=== PATIENT | female | born 1960 | race Two or more races ===

== ENCOUNTER 2022-04-14 19:50 | Emergency (ER) | payer BC, OTHER ==
[~2022-04-14] VITALS: Ht 165.1 cm; Wt 72.6 kg
--- NOTE | 2022-04-14 19:55 | NUR ---
[id number]. DIZZYNESS, NAUSEA AND VOMMITING. HX OF VERTIGO. MECLIZINE 25MG AND ZOFRAN 4MG SL 2 HRS CANDY MIXER. PARAMEDICS GAVE ZOFRAN 4MG IV. PLACED COMFORTABLY IN BED. VITALS CHECKED.
[2022-04-14] MEDS ORDERED: diphenhydrAMINE HCL 50 MG/ML VIAL ONE (20:21)
[2022-04-14] MEDS ORDERED: ONDANSETRON HCL/PF 4 MG/2 ML VIAL ONE (20:21)
[2022-04-14] MEDS ORDERED: DIAZEPAM 5 MG/ML 2 ML DISP.SYRIN ONE (20:21)
[2022-04-14] MEDS ORDERED: ONDANSETRON HCL/PF 4 MG/2 ML VIAL IVP ONE (20:30)
[2022-04-14] MEDS ORDERED: IV NS 0.9% 1,000 ML BAG IV ONE (20:30)
[2022-04-14] MEDS ORDERED: DIAZEPAM 5 MG/ML 2 ML DISP.SYRIN IV ONE (20:30)
[2022-04-14] MEDS ORDERED: diphenhydrAMINE HCL 50 MG/ML VIAL IV ONE (20:30)
--- NOTE | 2022-04-14 20:34 | NUR ---
BLOOD COLLECTED AND SENT TO LAB
--- NOTE | 2022-04-14 20:34 | NUR ---
PATIENT GOING TO CT.
[2022-04-14 20:57] LABS: BASOPHILS % (AUTO) 0.4 % (0.0-2.0); EOSINOPHILS % (AUTO) 1.8 % (0.0-6.0); HEMATOCRIT 48 % (33-45); HEMOGLOBIN 15.3 g/dL (11.5-14.8); LYMPHOCYTES # (AUTO) 0.9 K/uL (0.8-4.8); LYMPHOCYTES % (AUTO) 14.6 % (20.0-44.0); MEAN CORPUSCULAR HGB CONC 32 g/dl (31.0-36.0); MEAN CORPUSCULAR VOLUME 87 fL (82-100); MONOCYTES # (AUTO) 0.3 K/uL (0.1-1.30); MONOCYTES % (AUTO) 5.4 % (2.0-12.0); NEUTROPHILS # (AUTO) 4.7 K/uL (1.8-8.9); NEUTROPHILS % (AUTO) 77.8 % (43.0-81.0); PLATELET COUNT (AUTO) 304 K/uL (150-450); RED BLOOD CELL COUNT(AUTO) 5.54 MIL/uL (4.0-5.2); WHITE BLOOD COUNT (AUTO) 6.1 K/uL (4.3-11.0)
[2022-04-14 21:08] LABS: CALCIUM, SERUM 9.2 mg/dL (8.5-10.1); CREATININE 0.6 mg/dL (0.6-1.3)
[2022-04-14 21:19] LABS: BILIRUBIN,DIRECT 0.1 mg/dL (0.0-0.2); BILIRUBIN,TOTAL 0.5 mg/dL (0.2-1.0); TOTAL PROTEIN, SERUM 6.9 g/dL (6.4-8.2)
[2022-04-14] MEDS ORDERED: DIAZEPAM 5 MG TABLET PO ONE (21:30)
[2022-04-14] MEDS ORDERED: DIAZEPAM 5 MG TABLET ONE (21:45)
[2022-04-14] MEDS ORDERED: DIAZ5TAB4 PO (21:46)
--- NOTE | 2022-04-14 23:06 | NUR ---
Patient discharged to home in stable condition. Written and verbal after care instructions given. Patient verbalizes understanding of instruction.
--- NOTE | 2022-04-14 23:06 | NUR ---
IV CANNULA REMOVED
[2022-04-14 23:07] VITALS: BP 133/81
== END 2022-04-14 23:08 | disposition home or self-care (01) ==
LOC: ER 19:52
DX: R42 Dizziness and giddiness (principal); E11.9 Type 2 diabetes mellitus without complications
CPT/HCPCS: 99285; 96374; 70450; 71045; 96375; 96361; 93005; 85025; 80048; 80076; 36415; J3360; J1200; J2405; J7030